=== PATIENT | male | born 2000 | race Caucasian/White ===

== ENCOUNTER 2018-04-07 11:38 | Emergency (ER) | payer MEDICAID ==
[2018-04-07] MEDS: DIPHTH/TET/ACEL PERTUSS (ADULT) 0.5 ML VIAL IM* (12:00)
[2018-04-07] MEDS: LIDOCAINE 1% (MDV) 10 ML INJ INFIL (12:00)
== END 2018-04-07 13:10 | disposition home or self-care (01) ==
LOC: FTE 11:38
DX: S61.211A Laceration without foreign body of left index finger without damage to nail, initial encounter (principal); W25.XXXA Contact with sharp glass, initial encounter; Y92.9 Unspecified place or not applicable; Z23 Encounter for immunization
CPT/HCPCS: 12001; 73130-LT; 90471; 90715; 99283-25